=== PATIENT | female | born 2000 | race American Indian/Alaskan Native ===

== ENCOUNTER 2018-01-08 08:53 | Outpatient (CLI) | payer OTHER ==
--- NOTE | 2018-01-08 09:52 | Ultrasound Report ---
ULTRASOUND THYROID SCAN History: Goiter. Findings: No comparison. The thyroid gland is mildly enlarged. The right lobe measures 6.4 x 2.1 x 2.0 cm. The left lobe measures 5.8 x 1.6 x 2.1 cm. The isthmus measures 0.6 cm in thickness. A 1.2 x 0.4 x 0.5 cm benign-appearing hypodense nodule is identified in the superior left thyroid lobe. There is also a 4 mm cyst in the superior left thyroid lobe. No evidence for suspicious nodule or calcifications. No cervical adenopathy. Impression: Mild thyromegaly with 2 benign appearing left thyroid lesions as described.
== END 2018-01-08 08:54 | disposition home or self-care (01) ==
LOC: US 08:53
PROVIDERS: ATTEND Family Medicine
DX: E01.0 Iodine-deficiency related diffuse (endemic) goiter (principal); Z88.0 Allergy status to penicillin
CPT/HCPCS: 76536